=== PATIENT | female | born 1970 | race American Indian/Alaskan Native ===

== ENCOUNTER 2021-01-27 10:20 | Outpatient (CLI) | payer BC ==
--- NOTE | 2021-01-27 13:30 | Mammography Report ---
BILATERAL DIGITAL SCREENING MAMMOGRAM WITH CAD HISTORY: Screening mammogram. TECHNIQUE: Routine digital mammographic imaging performed. This examination was interpreted with kalyani barrera benefit of Computer-aided Detection analysis. COMPARISON: None currently available. The patient reports prior mammograms at an outside facility and these will be requested. FINDINGS: Breast Density: heterogeneously dense breast parenchymal pattern which somewhat lessens the sensitivi ty of the evaluation. Digital CC and MLO views demonstrate a grouping of calcifications in the left lateral posterior breas t. Additionally, there is an asymmetry in the left inferior breast which is seen on the MLO view onl y. No suspicious findings within the right breast. IMPRESSION: Left lateral posterior breast calcifications and left inferior breast asymmetry. Comparison prior ou tside mammograms is recommended to assess stability. We will request prior mammograms and an addendum will be added to this report once they are received. BIRADS 0-Incomplete: Needs additional imaging evaluation FURTHER INFORMATION: According to the [employer], yearly mammograms are recommend ed starting at age 40 and continuing as long as a woman is in good health. Clinical Breast Exams shou ld be part of a periodic health exam-about every 3 years for women in their 20s and 30s and every yea r for women 40 and over. Breast self exam is an option for women starting in their 20s. Any breast ch lin noted on a breast self exam should be reported promptly to the patient's healthcare provider. Br east MRI is recommended for women with an approximately 20-25% or greater lifetime risk of breast can cer, including women with a strong family history of breast or ovarian cancer and women who have been treated for Hodgkin's disease. A negative Mammography report should not discourage follow up or biopsy of a clinically significant f inding and/or abnormality. Dense breast tissue may obscure small neoplasms. The patient will be entered into a reminder system with a target due date for the next screening mamm ogram. Signer Name: Jeremiah Hassan MD Signed: 01/27/2021 1:26 PM Workstation Name: [id number]
== END 2021-01-27 10:21 | disposition home or self-care (01) ==
LOC: SPVWC 10:20
PROVIDERS: ATTEND Internal Medicine
DX: Z12.31 Encounter for screening mammogram for malignant neoplasm of breast (principal)
CPT/HCPCS: 77067